=== PATIENT | male | born 1975 | race African-American/Black ===

== ENCOUNTER 2016-11-25 19:01 | Emergency (ER) | payer SELFPAY ==
[~2016-11-25] VITALS: Ht 180.3 cm; Wt 97.5 kg
[2016-11-25 19:07] VITALS: BP 127/80; PULSE 105; RESP 18; TEMP 98.3; O2SAT 98
--- NOTE | 2016-11-25 20:10 | NUR ---
Patient to ER bed 8 to gown for evaluation. Side rails up. Report given to Kathryn COLVIN.
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
--- NOTE | 2016-11-25 20:32 | NUR ---
Note undone in EDM - 11/26/16 at 0419 by J CARLOS Patient given written and verbal discharge instructions and verbalizes understanding. ER BEBA Sim discussed with patient the results and treatment provided. Patient in stable condition. ID arm band removed. Rx of flexeril, motrin, bacitracin, tramadol given. Patient educated on pain management and to follow up with PMD. Pain Scale 0/10. Opportunity for questions provided and answered.
--- NOTE | 2016-11-25 20:32 | NUR ---
ER BEBA Sim at bedside evaluating the patient
[2016-11-25] MEDS ORDERED: HYDROcodone/ACETAMIN 7.5-325 MG TAB PO ONE (20:45)
[2016-11-25] MEDS ORDERED: KETOROLAC TROMETHAMINE 60 MG/2 ML VIAL IM ONE (20:45)
[2016-11-25 21:32] VITALS: BP 125/79; PULSE 73; RESP 18; TEMP 98.1; O2SAT 99
--- NOTE | 2016-11-25 21:32 | NUR ---
Patient given written and verbal discharge instructions and verbalizes understanding. ER SAW REPAIRER Chiquis discussed with patient the results and treatment provided. Patient in stable condition. ID arm band removed. Rx of flexeril, motrin, bacitracin, tramadol given. Patient educated on pain management and to follow up with PMD. Pain Scale 0/10. Opportunity for questions provided and answered.
== END 2016-11-25 21:32 | disposition home or self-care (01) ==
LOC: SED 19:01
DX: S20.319A Abrasion of unspecified front wall of thorax, initial encounter (principal); M25.532 Pain in left wrist; M79.662 Pain in left lower leg; M79.661 Pain in right lower leg; V89.2XXA Person injured in unspecified motor-vehicle accident, traffic, initial encounter; Y93.89 Activity, other specified; Y92.488 Other paved roadways as the place of occurrence of the external cause; Y99.8 Other external cause status
CPT/HCPCS: 99283; J1885